=== PATIENT | female | born 1960 | race Caucasian/White ===

== ENCOUNTER 2019-04-29 16:09 | Outpatient (CLI) | payer SELFPAY ==
[~2019-04-29 16:09] MED LIST: LOSA25TA25 PO; METO25TA2 PO; ROSU5TAB PO
== END 2019-04-29 23:59 | disposition home or self-care (01) ==
LOC: LAB 16:09
PROVIDERS: ATTEND Specialist
DX: Z00.00 Encounter for general adult medical examination without abnormal findings (principal)
CPT/HCPCS: 36415